=== PATIENT | female | born 1945 | race Caucasian/White ===

== ENCOUNTER 2018-04-21 10:30 | Outpatient (CLI) | payer MEDICARE | END 2018-04-21 10:31 | disposition home or self-care (01) | LOC: BICMAMMO 10:30 | PROVIDERS: ATTEND Family Medicine | DX: Z12.31 Encounter for screening mammogram for malignant neoplasm of breast (principal); Z85.51 Personal history of malignant neoplasm of bladder | CPT/HCPCS: 77063; 77067 ==

== ENCOUNTER 2019-04-04 12:18 | Emergency (ER) | payer MEDICARE ==
[2019-04-04] MEDS ORDERED: Ondansetron PF 4 MG/2 ML Vial ONE (12:57)
[2019-04-04 13:11] LABS: ALT (SGPT) 29 U/L (8-55); AST (SGOT) 32 U/L (5-34); Albumin 4.8 g/dL (3.4-4.8); Alkaline Phosphatase 81 U/L (40-150); Anion Gap 13 mmol/L (10-20); BUN (Urea Nitrogen) 21 mg/dL (9.8-20.1); Bilirubin, Total 0.5 mg/dL (0.2-1.2); Calc. Creatinine Clearance 0 mL/min (70-130); Carbon Dioxide 28 mmol/L (23-31); Chloride 100 mmol/L (98-107); Estimated GFR-MDRD 62; Globulin 3.6 g/dL (2.4-3.5); Glucose 98 mg/dL (83-110); Lipase 35 U/L (8-78); Potassium 4.3 mmol/L (3.5-5.1); Protein, Total 8.4 g/dL (6.0-8.3); Sodium 137 mmol/L (136-145)
[2019-04-04 13:14] LABS: #Lymphocytes 1.1 thou/uL (1.20-3.40); #Monocytes 0.4 thou/uL (0.11-0.59); #Neutrophils 2.5 thou/uL (1.40-6.50); %Basophils 0.6 % (0.0-1.0); %Lymphocytes 26.9 % (21.0-51.0); %Monocytes 9.9 % (0.0-10.0); %Neutrophils 61.6 % (42.0-75.0); Hemoglobin 15.1 g/dL (12.0-16.0); Mean Corpuscular HGB CONC 32.9 g/dL (32.0-36.0); Mean Corpuscular Hemoglobin 31.7 pg (27.0-31.0); Mean Corpuscular Volume 96.6 fL (78.0-98.0); Mean Platelet Volume 8.1 fL (7.4-10.4); Platelet Count 201 thou/uL (130-400); RBC Distribution Width 11.7 % (11.5-14.5); Red Blood Cell (RBC) Count 4.77 mill/uL (4.20-5.40)
[2019-04-04 13:35] LABS: Bilirubin Negative (Negative); Blood, Urine Trace (Negative); Clarity Clear (Clear); Glucose, Urine (Dipstick) Negative (Negative); Leukocyte Negative (Negative); Nitrite Negative (Negative); Protein, Urine (Dipstick) Negative (Neg-Trace); Urobilinogen 0.2 mg/dL (Less than 2)
[2019-04-04 13:42] LABS: Bacteria/HPF 1+ HPF (None Seen); RBC/HPF 0-3 HPF (0-3); WBC/HPF None Seen HPF (0-3)
[2019-04-04] MEDS ORDERED: Sucralfate 1 GM TAB ONE (13:53)
== END 2019-04-04 14:00 | disposition home or self-care (01) ==
LOC: SCSER 12:18
DX: R19.7 Diarrhea, unspecified (principal); R11.0 Nausea; I38 Endocarditis, valve unspecified; I34.1 Nonrheumatic mitral (valve) prolapse; Z79.899 Other long term (current) drug therapy
CPT/HCPCS: 80053; 81003; 81015; 83690; 85025; 96361; 96374; J2405

== ENCOUNTER 2019-04-22 08:33 | Outpatient (CLI) | payer MEDICARE ==
--- NOTE | 2019-04-26 06:46 | MMO ---
Bilateral MAMMO Bilat Screen [facility]. CLINICAL HISTORY: Patient is 74 years old and is seen for screening. The patient has the following family history of breast cancer: sister, 80'S. The patient has a history of bladder cancer at age 62. The patient has a history of left Excisional Biopsy in August, - benign and left Excisional Biopsy in 1985 - benign. VIEWS: The views performed were: bilateral craniocaudal with tomosynthesis; bilateral mediolateral oblique with tomosynthesis; and bilateral exaggerated craniocaudal. FILMS COMPARED: The present examination has been compared to prior imaging studies performed at [facility] on 04/17/2015, 04/17/2016, 04/20/2017 and 04/21/2018. MAMMOGRAM FINDINGS: The breasts are heterogeneously dense, which could obscure a lesion on mammography. There is a stable biopsy clip seen in the left breast. There are no suspicious masses, suspicious calcifications, or new areas of architectural distortion. IMPRESSION: THERE IS NO MAMMOGRAPHIC EVIDENCE OF MALIGNANCY. A ROUTINE FOLLOW-UP MAMMOGRAM IN 1 YEAR IS RECOMMENDED. THE RESULTS OF THIS EXAM WERE SENT TO THE PATIENT. ACR BI-RADS Category 2 - Benign finding MAMMOGRAPHY NOTE: 1. A negative mammogram report should not delay a biopsy if a dominant of clinically suspicious mass is present. 2. Approximately 10% to 15% of breast cancers are not detected by mammography. 3. Adenosis and dense breasts may obscure an underlying neoplasm. Reported by: BROOKE ALMAZAN MD Electonically Signed: [id number]
== END 2019-04-22 08:34 | disposition home or self-care (01) ==
LOC: BICMAMMO 08:33
PROVIDERS: ATTEND Family Medicine
DX: Z12.31 Encounter for screening mammogram for malignant neoplasm of breast (principal); Z80.3 Family history of malignant neoplasm of breast; Z85.51 Personal history of malignant neoplasm of bladder; Z91.89 Other specified personal risk factors, not elsewhere classified
CPT/HCPCS: 77063; 77067

== ENCOUNTER 2022-05-21 11:06 | Outpatient (CLI) | payer MEDICARE | END 2022-05-21 11:07 | disposition home or self-care (01) | LOC: BICMAMMO 11:06 | PROVIDERS: ATTEND Family Medicine | DX: Z12.31 Encounter for screening mammogram for malignant neoplasm of breast (principal); Z91.89 Other specified personal risk factors, not elsewhere classified; Z85.51 Personal history of malignant neoplasm of bladder; Z80.3 Family history of malignant neoplasm of breast | CPT/HCPCS: 77063; 77067 ==

== ENCOUNTER 2023-05-22 08:48 | Outpatient (CLI) | payer MEDICARE | END 2023-05-22 08:49 | disposition home or self-care (01) | LOC: BICMAMMO 08:48 | PROVIDERS: ATTEND Family Medicine | DX: Z12.31 Encounter for screening mammogram for malignant neoplasm of breast (principal); Z13.820 Encounter for screening for osteoporosis; M81.0 Age-related osteoporosis without current pathological fracture; M85.89 Other specified disorders of bone density and structure, multiple sites; Z80.3 Family history of malignant neoplasm of breast; Z91.89 Other specified personal risk factors, not elsewhere classified; Z85.51 Personal history of malignant neoplasm of bladder; Z78.0 Asymptomatic menopausal state | CPT/HCPCS: 77063; 77067; 77080 ==

== ENCOUNTER 2024-05-26 13:24 | Outpatient (CLI) | payer MEDICARE | END 2024-05-26 13:25 | disposition home or self-care (01) | LOC: BICULT 13:24 | PROVIDERS: ATTEND Family Medicine | DX: N63.12 Unspecified lump in the right breast, upper inner quadrant (principal) ==

== ENCOUNTER 2025-03-31 14:49 | Outpatient (CLI) | payer MEDICARE | END 2025-03-31 14:50 | disposition home or self-care (01) | LOC: BICRAD 14:49 | PROVIDERS: ATTEND Internal Medicine | DX: R05.9 Cough, unspecified (principal); R13.10 Dysphagia, unspecified; R12 Heartburn; Z86.0100 Personal history of colon polyps, unspecified; J44.9 Chronic obstructive pulmonary disease, unspecified | CPT/HCPCS: 71046 ==

== ENCOUNTER 2025-05-11 11:47 | Outpatient (CLI) | payer MEDICARE | END 2025-05-11 11:48 | disposition home or self-care (01) | LOC: RAD 11:47 | PROVIDERS: ATTEND Internal Medicine | DX: R06.00 Dyspnea, unspecified (principal); J43.9 Emphysema, unspecified; M41.9 Scoliosis, unspecified | CPT/HCPCS: 71046 ==

== ENCOUNTER 2025-05-24 10:12 | Outpatient (CLI) | payer MEDICARE | END 2025-05-24 10:13 | disposition home or self-care (01) | LOC: BICMAMMO 10:12 | PROVIDERS: ATTEND Family Medicine | DX: Z12.31 Encounter for screening mammogram for malignant neoplasm of breast (principal); Z80.3 Family history of malignant neoplasm of breast; Z85.51 Personal history of malignant neoplasm of bladder; Z91.89 Other specified personal risk factors, not elsewhere classified; N63.10 Unspecified lump in the right breast, unspecified quadrant | CPT/HCPCS: 77063; 77067 ==